=== PATIENT | female | born 1940 | race Caucasian/White ===

== ENCOUNTER 2016-10-23 18:48 | Emergency (ER) | payer MEDICARE, BC ==
[2016-10-23 19:15] VITALS: BP 148/72
[2016-10-23] MEDS ORDERED: Ondansetron 4 MG Tab.DIS PO ONE (19:23)
[2016-10-23] MEDS ORDERED: Ondansetron 4 MG Tab.DIS ONE ×2 (19:24→20:15)
--- NOTE | 2016-10-26 08:22 | ER ---
HISTORY OF PRESENT ILLNESS: A 76-year-old lady here with complaints of not feeling well today. She tells me that she was seen in [place] yesterday, they gave her an infusion of Reclast, which is the first one she has had. She felt fine yesterday. This morning, she woke up with a headache. She felt chilled. She has since developed some nausea and abdominal discomfort. She feels like she has been, maybe feverish at times, but she has not been checking her temperature. The patient has not been coughing. She denies any problems with shortness of breath or wheezing. The patient is not sure what is going on. She denies any problems with diarrhea. She has not been vomiting, but does feel nauseated. OBJECTIVE: GENERAL APPEARANCE: The patient is awake and alert, in no obvious distress. VITAL SIGNS: Reviewed. Temp is 99.9 degrees today. HEENT: Ears, TMs are normal. Nares are patent. Oral mucous membranes are moist. Tonsils not enlarged or injected. Pharynx not inflamed. NECK: Supple. LUNGS: Clear. ABDOMEN: Soft. Mild tenderness with palpation. Bowel sounds are present and active. SKIN: Warm and dry. There is just a trace of lower extremity edema involving the area just above the ankles bilaterally. INITIAL TREATMENT: Zofran 4 mg was given, sublingual. LABORATORY DATA: Include a CBC and CMP. The patient's white count is normal, and she does have some decreased kidney function but this is not new. The Zofran did control the patient's nausea well. In reviewing Reclast, the patient is having a side effect issues. All of her symptoms are possible side affects of Reclast including flu-like illness. DIAGNOSIS: Drug reaction. TREATMENT PLAN: The patient is to go home and rest. She is to take Tylenol every 6 hours as needed for pain and fever. I will give her a few Zofran tablets to take sublingual as needed for nausea, and she is to try to increase her liquid intake. She is to call [place] back on Wednesday to let them know she reacted to the Reclast medication. If her symptoms should get worse, she is to call the emergency room back for further information as needed. The patient has no further questions. CRS/MODL /[id number]
== END 2016-10-23 20:25 | disposition home or self-care (01) ==
LOC: LB.ED 18:48
DX: R11.0 Nausea (principal); T50.995A Adverse effect of other drugs, medicaments and biological substances, initial encounter
CPT/HCPCS: 36415; 80053; 85025; 99283; A9270; 85610; 99282

== ENCOUNTER 2017-03-22 16:43 | Emergency (ER) | payer MEDICARE, BC ==
[2017-03-22] MEDS ORDERED: Sodium Chloride 0.9% 10 ML Syringe FLUSH PRN (16:49)
--- NOTE | 2017-03-24 09:54 | EDM.PDOC ---
ED HPI GENERAL MEDICAL PROBLEM - General Chief Complaint: Cardiovascular Problem Stated Complaint: Elevated Trop Time Seen by Provider: 03/23/17 17:00 Source of Information: Reports: Patient History Limitations: Reports: No Limitations - History of Present Illness INITIAL COMMENTS - FREE TEXT/NARRATIVE: This is a 76yo F seen in clinic for increasing sob and lower leg edema since and found to have elevated troponins today in clinic and was transferred to the ER for transfer to [place]. Location: Reports: Lower Extremity, Left, Lower Extremity, Right Associated Symptoms: Reports: Shortness of Breath - Related Data Allergies Allergy/AdvReac Type Severity Reaction Status Date / Time meperidine HCl [From Demerol] Allergy Hives Verified 03/22/17 17:03 Home Meds: Home Meds Aspirin [Halfprin] 81 mg PO DAILY 01/05/15 [History] Furosemide [Furosemide] 20 mg PO DAILY 01/05/15 [History] Metoprolol Tartrate [Lopressor] 25 mg PO BID 01/05/15 [History] Omeprazole [Omeprazole] 20 mg PO BID 01/05/15 [History] Pioglitazone HCl 30 mg PO DAILY 01/05/15 [History] amLODIPine Besylate [Amlodipine Besylate] 2.5 mg PO DAILY 01/05/15 [History] Ferrous Sulfate 325 mg PO WITHBREAKFAST 04/29/16 [History] L.acidoph,Paracasei, B.lactis [Probiotic] 1 each PO DAILY 04/29/16 [History] Warfarin Sodium [Jantoven] 1.5 tab PO DAILY 04/29/16 [History] sitaGLIPtin Phos/Metformin HCl [Janumet 50-1,000 MG] 1 each PO BIDMEALS [History] Calcium Carbonate [Calcium] 500 mg PO DAILY 10/23/16 [History] Cholecalciferol (Vitamin D3) [Vitamin D] 5,000 unit PO DAILY 10/23/16 [History] Insulin Degludec [Tresiba Flextouch U-100] 3 unit SQ DAILY 10/23/16 [History] PNV95/Ferrous Fumarate/FA [ Tablet] 1 each PO DAILY 10/23/16 [History] Past Medical History HEENT History: Reports: Cataract Other HEENT History: glasses, dentures Cardiovascular History: Reports: Blood Clots/VTE/DVT, High Cholesterol, Hypertension Gastrointestinal History: Reports: Chronic Diarrhea, GERD, Pancreatitis Other OB/BYN History: parity: 3, gravity: 3, vaginal deliveries Musculoskeletal History: Reports: Fracture, Other (See Below) Other Musculoskeletal History: broken left and right wrist and left leg and broken rt hand Endocrine/Metabolic History: Reports: Diabetes, Type II Hematologic History: Reports: Anemia Other Hematologic History: Factor 5 , HX of hepatitis Oncologic (Cancer) History: Reports: Breast Other Dermatologic History: cartilege removed from both knees - Infectious Disease History 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 ED EXAM, GENERAL - Physical Exam Exam: See Below Exam Limited By: No Limitations General Appearance: Alert, WD/WN, No Apparent Distress Eye Exam: Bilateral Eye: EOMI, PERRL Ears: Normal External Exam Nose: Normal Inspection Throat/Mouth: Normal Inspection Head: Atraumatic, Normocephalic Neck: Normal Inspection Respiratory/Chest: No Respiratory Distress, Lungs Clear, Normal Breath Sounds Cardiovascular: Normal Peripheral Pulses, Regular Rate, Rhythm Peripheral Pulses: 2+: Dorsalis Pedis (L), Dorsalis Pedis (R) GI/Abdominal: Normal Bowel Sounds Extremities: Normal Inspection, Pedal Edema Neurological: Alert, Oriented, CN II-XII Intact Psychiatric: Normal Affect, Normal Mood Course - Orders/Labs/Meds Orders: Medication Orders Sodium Chloride (Saline Flush) 10 ml FLUSH ASDIRECTED PRN PRN Reason: Keep Vein Open Labs: Laboratory Tests 03/22/17 03/22/17 Range/Units 16:00 16:48 PT 13.4 H (9.0-11.5) sec INR 1.4 (1.0-3.5) Urine Color Yellow Urine Appearance Clear (CLEAR) Urine pH 6.0 (5.0-8.0) Ur Specific [place] 1.010 (1.003-1.030) Urine Protein Negative (NEGATIVE) mg/dL Urine Glucose (UA) Negative (NEGATIVE) mg/dL Urine Ketones Negative (NEGATIVE) mg/dL Urine Occult Blood Trace-intact H (NEGATIVE) Urine Nitrite Negative (NEGATIVE) Urine Bilirubin Negative (NEGATIVE) Urine Urobilinogen 0.2 (0.2-1.0) E.U./dL Ur Leukocyte Esterase Negative (NEGATIVE) Urine RBC 0-5 H /HPF Urine WBC Not seen /HPF Ur Squamous Epith Cells Rare /HPF Urine Bacteria Rare /HPF Meds: Medications Generic Name Dose Route Start Last Admin Trade Name Freq PRN Reason Stop Dose Admin Sodium Chloride 10 ml 03/22/17 16:49 Saline Flush FLUSH ASDIRECTED PRN Keep Vein Open Departure - Departure Time of Disposition: 18:00 Disposition: DC/Tfer to Acute Hospital 02 Reason for Transfer *Q: Other Condition: Undetermined Clinical Impression: NSTEMI (non-ST elevated myocardial infarction), SOB (shortness of breath), Lower leg edema Clinical Impression: (Ruled Out): Swelling of joint of lower leg Referrals: Ryan Kennedy MD [Primary Care Provider] - Forms: ED Department Discharge - Problem List & Annotations (1) Lower leg edema SNOMED Code(s): 399665567 Code(s): R60.0 - LOCALIZED EDEMA Status: Acute Current Visit: Yes (2) NSTEMI (non-ST elevated myocardial infarction) SNOMED Code(s): 816648351 Code(s): I21.4 - NON-ST ELEVATION (NSTEMI) MYOCARDIAL INFARCTION Status: Acute Current Visit: Yes (3) SOB (shortness of breath) SNOMED Code(s): 530531789 Code(s): R06.02 - SHORTNESS OF BREATH Status: Acute Current Visit: Yes - Problem List Review Problem List Initiated/Reviewed/Updated: Yes - Assessment/Plan Plan: Patient to be transferred to [facility] under Dr. Sommers for further management and workup with Cardiology.
== END 2017-03-22 18:15 ==
LOC: LB.ED 16:43
DX: I21.4 Non-ST elevation (NSTEMI) myocardial infarction (principal); E11.9 Type 2 diabetes mellitus without complications; E78.00 Pure hypercholesterolemia, unspecified; I10 Essential (primary) hypertension; K21.9 Gastro-esophageal reflux disease without esophagitis; Z88.8 Allergy status to other drugs, medicaments and biological substances; Z79.82 Long term (current) use of aspirin; Z79.01 Long term (current) use of anticoagulants; Z79.899 Other long term (current) drug therapy; Z79.84 Long term (current) use of oral hypoglycemic drugs; Z79.4 Long term (current) use of insulin; Z86.79 Personal history of other diseases of the circulatory system; Z86.19 Personal history of other infectious and parasitic diseases; Z90.89 Acquired absence of other organs
CPT/HCPCS: 36415; 81001; 85610; 99283; 99285; A0425; A0429; 80053; 83880; 84443; 84484; 85025; 93005

== ENCOUNTER 2017-03-28 11:38 | Emergency (ER) | payer MEDICARE, BC ==
[2017-03-28] MEDS ORDERED: traMADol 50 MG Tab ONE (11:45)
[2017-03-28] MEDS ORDERED: traMADol 50 MG Tab PO ONE (11:50)
--- NOTE | 2017-03-28 11:56 | EDM.PDOC ---
ED HPI GENERAL MEDICAL PROBLEM - General Chief Complaint: General Stated Complaint: fall Time Seen by Provider: 03/28/17 11:45 Source of Information: Reports: Patient History Limitations: Reports: No Limitations - History of Present Illness INITIAL COMMENTS - FREE TEXT/NARRATIVE: This is a 76yo F here for left knee pain. Patient states she fell yesterday and the left knee pain has gradually gotten worsen. She is able to walk with varying pain. She states she feels very sharp pains with certain movements. Onset: Sudden Duration: Day(s): Location: Reports: Lower Extremity, Left Quality: Reports: Ache, Stabbing Severity: Moderate Improves with: Reports: None Worsens with: Reports: None Associated Symptoms: Reports: No Other Symptoms - Related Data Allergies Allergy/AdvReac Type Severity Reaction Status Date / Time meperidine HCl [From Demerol] Allergy Hives Verified 03/22/17 17:03 Home Meds: Home Meds Aspirin [Halfprin] 81 mg PO DAILY 01/05/15 [History] Furosemide [Furosemide] 20 mg PO DAILY 01/05/15 [History] Metoprolol Tartrate [Lopressor] 25 mg PO BID 01/05/15 [History] Omeprazole [Omeprazole] 20 mg PO BID 01/05/15 [History] Pioglitazone HCl 30 mg PO DAILY 01/05/15 [History] amLODIPine Besylate [Amlodipine Besylate] 2.5 mg PO DAILY 01/05/15 [History] Ferrous Sulfate 325 mg PO WITHBREAKFAST 04/29/16 [History] L.acidoph,Paracasei, B.lactis [Probiotic] 1 each PO DAILY 04/29/16 [History] Warfarin Sodium [Jantoven] 1.5 tab PO DAILY 04/29/16 [History] sitaGLIPtin Phos/Metformin HCl [Janumet 50-1,000 MG] 1 each PO BIDMEALS [History] Calcium Carbonate [Calcium] 500 mg PO DAILY 10/23/16 [History] Cholecalciferol (Vitamin D3) [Vitamin D] 5,000 unit PO DAILY 10/23/16 [History] Insulin Degludec [Tresiba Flextouch U-100] 3 unit SQ DAILY 10/23/16 [History] PNV95/Ferrous Fumarate/FA [ Tablet] 1 each PO DAILY 05/05/17 [History] Past Medical History HEENT History: Reports: Cataract Other HEENT History: glasses, dentures Cardiovascular History: Reports: Blood Clots/VTE/DVT, High Cholesterol, Hypertension Gastrointestinal History: Reports: Chronic Diarrhea, GERD, Pancreatitis Other OB/BYN History: parity: 3, gravity: 3, vaginal deliveries Musculoskeletal History: Reports: Fracture, Other (See Below) Other Musculoskeletal History: broken left and right wrist and left leg and broken rt hand Endocrine/Metabolic History: Reports: Diabetes, Type II Hematologic History: Reports: Anemia Other Hematologic History: Factor 5 , HX of hepatitis Oncologic (Cancer) History: Reports: Breast Other Dermatologic History: cartilege removed from both knees - Infectious Disease History 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 ED EXAM, GENERAL - Physical Exam Exam: See Below Exam Limited By: No Limitations General Appearance: Mild Distress Ears: Normal External Exam Nose: Normal Inspection Head: Atraumatic, Normocephalic Neck: Normal Inspection Respiratory/Chest: No Respiratory Distress Cardiovascular: Normal Peripheral Pulses Extremities: Joint Swelling, Leg Pain, Other (left knee hematoma) Neurological: Alert, Oriented Psychiatric: Normal Affect, Normal Mood Skin Exam: Warm, Dry, Intact, Ecchymosis Course - Orders/Labs/Meds Orders: Active Orders 24 hr Category Date Time Status Knee 1V or 2V Lt [CR] Stat Exams 03/28/17 11:52 Taken Meds: Medications Discontinued Medications Generic Name Dose Route Start Last Admin Trade Name Freq PRN Reason Stop Dose Admin Tramadol HCl 50 mg 03/28/17 11:50 03/28/17 11:56 Ultram PO 03/28/17 11:51 50 mg ONETIME ONE Administration Departure - Departure Time of Disposition: 12:25 Disposition: Home, Self-Care 01 Condition: Good Clinical Impression: Contusion of knee, left Qualifiers: Encounter type: initial encounter Qualified Code(s): S80.02XA - Contusion of left knee, initial encounter - Discharge Information Instructions: Knee Pain Referrals: PCP,None [Primary Care Provider] - Forms: ED Department Discharge Additional Instructions: Take 1 tablet (50 mg) of tramadol every 6 hours as needed for pain. - Problem List & Annotations (1) Contusion of knee, left SNOMED Code(s): 42256006 Code(s): S80.02XA - CONTUSION OF LEFT KNEE, INITIAL ENCOUNTER Status: Acute Priority: High Current Visit: Yes Qualifiers: Encounter type: initial encounter Qualified Code(s): S80.02XA - Contusion of left knee, initial encounter - Problem List Review Problem List Initiated/Reviewed/Updated: Yes - My Orders Last 24 Hours: My Active Orders 03/28/17 11:52 Knee 1V or 2V Lt [CR] Stat - Assessment/Plan Last 24 Hours: My Active Orders 03/28/17 11:52 Knee 1V or 2V Lt [CR] Stat Plan: Counseled on supportive care and close monitoring for further symptoms. Discussed pain management and f/u as needed in clinic or ER. Tramadol for pain control. Discussed side effects.
[2017-03-28 15:44] VITALS: BP 158/74
--- NOTE | 2017-03-29 08:39 | CR ---
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 There is chondrocalcinosis medially and laterally. There is a moderate-sized joint effusion. There is soft tissue swelling anterior to the patella as well as anterior to the patellar tendon. The patellar tendon appears swollen and partially discontinuous. The possibility of a patellar tendon tear should be considered. Clinical correlation is recommended. A MRI scan is recommended if clinically indicated. No acute fracture or dislocation. There are vascular calcifications in the soft tissues. [id number] [facility]
== END 2017-03-28 12:40 | disposition home or self-care (01) ==
LOC: LB.ED 11:38
DX: S80.02XA Contusion of left knee, initial encounter (principal); E78.00 Pure hypercholesterolemia, unspecified; I10 Essential (primary) hypertension; E11.9 Type 2 diabetes mellitus without complications; Z96.659 Presence of unspecified artificial knee joint; Z79.899 Other long term (current) drug therapy; Z88.5 Allergy status to narcotic agent; Z79.01 Long term (current) use of anticoagulants; Z79.4 Long term (current) use of insulin; W19.XXXA Unspecified fall, initial encounter
CPT/HCPCS: 73560; 99283; A9270

== ENCOUNTER 2017-05-08 06:47 | Emergency (ER) | payer MEDICARE, BC ==
[2017-05-08 07:02] VITALS: BP 153/58
--- NOTE | 2017-05-08 08:28 | EDM.PDOC ---
ED HPI GENERAL MEDICAL PROBLEM - General Chief Complaint: Genitourinary Problem Stated Complaint: possible urinary tract infection Time Seen by Provider: 05/08/17 08:00 Source of Information: Reports: Patient History Limitations: Reports: No Limitations - History of Present Illness INITIAL COMMENTS - FREE TEXT/NARRATIVE: According to patient she has been having burning with urination and lower abdominal discomfort for past 3 days now. The frequency has been getting worse and has been waking upat night to urinate. No back pain. No fever or chills. No nausea or vomiting. Pt waited to see if the symptoms would resolve. No vaginal bleeding or discharge. Duration: Day(s): (3) Severity: Mild Improves with: Reports: None Worsens with: Reports: None Associated Symptoms: Denies: Confusion, Chest Pain, Cough, Diaphoresis, Fever/ Chills, Headaches, Loss of Appetite, Nausea/Vomiting, Rash, Seizure, Shortness of Breath, Syncope, Weakness - Related Data Allergies Allergy/AdvReac Type Severity Reaction Status Date / Time meperidine HCl [From Demerol] Allergy Hives Verified 03/22/17 17:03 Home Meds: Home Meds Aspirin [Halfprin] 81 mg PO DAILY 01/05/15 [History] Furosemide [Furosemide] 20 mg PO DAILY 01/05/15 [History] Metoprolol Tartrate [Lopressor] 25 mg PO BID 01/05/15 [History] Omeprazole [Omeprazole] 20 mg PO BID 01/05/15 [History] amLODIPine Besylate [Amlodipine Besylate] 2.5 mg PO DAILY 01/05/15 [History] Ferrous Sulfate 325 mg PO WITHBREAKFAST 04/29/16 [History] L.acidoph,Paracasei, B.lactis [Probiotic] 1 each PO DAILY 04/29/16 [History] Warfarin Sodium [Jantoven] 1.5 tab PO DAILY 04/29/16 [History] Calcium Carbonate [Calcium] 500 mg PO DAILY 10/23/16 [History] Cholecalciferol (Vitamin D3) [Vitamin D] 5,000 unit PO DAILY 10/23/16 [History] Insulin Degludec [Tresiba Flextouch U-100] 8 unit SQ DAILY 10/23/16 [History] PNV95/Ferrous Fumarate/FA [ Tablet] 1 each PO DAILY 10/23/16 [History] Insulin Aspart [NovoLOG] 3 units SQ TID 05/08/17 [History] Warfarin [Coumadin] 1 mg PO DAILY 05/08/17 [History] Past Medical History HEENT History: Reports: Cataract Other HEENT History: glasses, dentures Cardiovascular History: Reports: Blood Clots/VTE/DVT, High Cholesterol, Hypertension Gastrointestinal History: Reports: Chronic Diarrhea, GERD, Pancreatitis Other OB/BYN History: parity: 3, gravity: 3, vaginal deliveries Musculoskeletal History: Reports: Fracture, Other (See Below) Other Musculoskeletal History: broken left and right wrist and left leg and broken rt hand Endocrine/Metabolic History: Reports: Diabetes, Type II Hematologic History: Reports: Anemia Other Hematologic History: Factor 5 , HX of hepatitis Oncologic (Cancer) History: Reports: Breast Other Dermatologic History: cartilege removed from both knees - Infectious Disease History 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,B,C - Past Surgical History HEENT Surgical History: Reports: Cataract Surgery, LASIK, Tonsillectomy Female Surgical History: Reports: Breast Biopsy Musculoskeletal Surgical History: Reports: Arthroscopic Knee, Knee Replacement Social & Family History - Family History Family Medical History: Noncontributory - Tobacco Use Smoking Status *Q: Never Smoker Second Hand Smoke Exposure: No - Caffeine Use Caffeine Use: Reports: Coffee - Recreational Drug Use Recreational Drug Use: No ED ROS GENERAL - Review of Systems Review Of Systems: See Below Constitutional: Denies: Fever, Chills HEENT: Denies: Rhinitis, Sinus Problem, Throat Pain Respiratory: Denies: Shortness of Breath, Wheezing, Cough, Sputum Cardiovascular: Denies: Chest Pain, Lightheadedness GI/Abdominal: Denies: Abdominal Pain, Nausea, Vomiting : Reports: Dysuria, Frequency, Urgency. Denies: Flank Pain, Hematuria, Incontinence, Urinary Retention Musculoskeletal: Denies: Shoulder Pain, Foot Pain, Joint Pain, Joint Swelling Skin: Denies: Pruritis, Rash ED EXAM, GENERAL - Physical Exam Exam: See Below Exam Limited By: No Limitations General Appearance: Alert, WD/WN, No Apparent Distress Eye Exam: Bilateral Eye: PERRL Ears: Normal External Exam, Normal Canal, Hearing Grossly Normal, Normal TMs Ear Exam: Bilateral Ear: Auricle Normal, Canal Normal, TM normal Nose: Normal Inspection, Normal Mucosa, No Blood Throat/Mouth: Normal Inspection, Normal Lips, Normal Teeth, Normal Gums, Normal Oropharynx, Normal Voice, No Airway Compromise Head: Atraumatic, Normocephalic Neck: Normal Inspection, Supple, Non-Tender, Full Range of Motion Respiratory/Chest: No Respiratory Distress, Lungs Clear, Normal Breath Sounds, No Accessory Muscle Use, Chest Non-Tender Cardiovascular: Normal Peripheral Pulses, Regular Rate, Rhythm, No Edema, No Gallop, No JVD, No Murmur, No Rub GI/Abdominal: Normal Bowel Sounds, Soft, No Organomegaly, No Distention, No Abnormal Bruit, No Mass, Tender (suprapubic tenderness). No: Guarding, Rigid, Rebound Extremities: Normal Inspection, Normal Range of Motion, Non-Tender, Normal Capillary Refill, No Pedal Edema Neurological: Alert, Oriented Skin Exam: Warm, Intact Course - Vital Signs Text/Narrative:: Pt's UA shows large leucs and 75-100 WBCs. Pt reassured that she has acute UTI. She does not have any symptoms of pyelonephritis. Urine culture sent. Pt started on cipro 500mg BID for 1 wk. Plenty of fluids and 1-2 glass of cranberry juice. Will followup with culture results. Return if symptoms worsen. Last Recorded V/S: Last Vital Signs Temp 97 F 05/08/17 07:43 Pulse 74 05/08/17 07:43 Resp 16 05/08/17 07:43 BP 153/58 H 05/08/17 07:43 Pulse Ox 100 05/08/17 07:43 - Orders/Labs/Meds Orders: Active Orders 24 hr Category Date Time Status CULTURE URINE [RM] Stat Lab 05/08/17 08:22 Ordered Labs: Laboratory Tests 05/08/17 Range/Units 07:44 Urine Color Yellow Urine Appearance Cloudy (CLEAR) Urine pH 7.0 (5.0-8.0) Ur Specific [place] 1.015 (1.003-1.030) Urine Protein 30 H (NEGATIVE) mg/dL Urine Glucose (UA) Negative (NEGATIVE) mg/dL Urine Ketones Negative (NEGATIVE) mg/dL Urine Occult Blood Large H (NEGATIVE) Urine Nitrite Negative (NEGATIVE) Urine Bilirubin Negative (NEGATIVE) Urine Urobilinogen 0.2 (0.2-1.0) E.U./dL Ur Leukocyte Esterase Large H (NEGATIVE) Urine RBC 20-30 H /HPF Urine WBC 75-100 H /HPF Urine WBC Clumps Few /HPF Ur Squamous Epith Cells Few /HPF Urine Bacteria Few /HPF Departure - Departure Time of Disposition: 08:45 Disposition: Home, Self-Care 01 Condition: Good Clinical Impression: UTI, Urinary tract infectious disease - Discharge Information Instructions: Urinary Tract Infection, Adult, Ciprofloxacin tablets Referrals: PCP,None [Primary Care Provider] - Forms: ED Department Discharge Care Plan Goals: Take cipro 1 tablet two times day for total of 7 days. Have rest of prescription filled on Wednesday. Drink plenty of fluids (water or juice, not coffee) - Problem List & Annotations (1) UTI, Urinary tract infectious disease SNOMED Code(s): 96833745 Code(s): N39.0 - URINARY TRACT INFECTION, SITE NOT SPECIFIED Status: Acute Current Visit: Yes - Problem List Review Problem List Initiated/Reviewed/Updated: Yes - My Orders Last 24 Hours: My Active Orders 05/08/17 08:22 CULTURE URINE [RM] Stat - Assessment/Plan Last 24 Hours: My Active Orders 05/08/17 08:22 CULTURE URINE [RM] Stat Assessment:: UTI Plan: Pt's UA shows large leucs and 75-100 WBCs. Pt reassured that she has acute UTI. She does not have any symptoms of pyelonephritis. Urine culture sent. Pt started on cipro 500mg BID for 1 wk. Plenty of fluids and 1-2 glass of cranberry juice. Will followup with culture results. Return if symptoms worsen.
[2017-05-08] MEDS ORDERED: Ciprofloxacin 500 MG Tab ONE (08:30)
== END 2017-05-08 10:13 | disposition home or self-care (01) ==
LOC: LB.ED 06:47
DX: N39.0 Urinary tract infection, site not specified (principal); E11.9 Type 2 diabetes mellitus without complications; E78.00 Pure hypercholesterolemia, unspecified; I10 Essential (primary) hypertension; Z79.82 Long term (current) use of aspirin; Z79.899 Other long term (current) drug therapy; Z79.01 Long term (current) use of anticoagulants; Z79.4 Long term (current) use of insulin
CPT/HCPCS: 81001; 87086; 87088; 87186; 99283; A9270

== ENCOUNTER 2017-09-11 10:42 | Emergency (ER) | payer MEDICARE, BC ==
--- NOTE | 2017-09-11 11:11 | EDM.PDOC ---
ED HPI GENERAL MEDICAL PROBLEM - General Chief Complaint: Chest Pain Stated Complaint: CHEST PAIN Time Seen by Provider: 09/11/17 10:45 Source of Information: Reports: Patient History Limitations: Reports: No Limitations - History of Present Illness INITIAL COMMENTS - FREE TEXT/NARRATIVE: According to patient she claims claims that around 8 AM she felt some chest pressure and sick, which last for few minutes and resolved.No shortness of breath or wheezing, she had not obvious chest pain or radiation of pain. No syncope, dizziness, no nausea or vomiting. She has been doing most of her daily activity since then and does not have anymore discomfort. As she has cardiac history she is here to be seen. No weakness, diaphoresis.No other complaints. Presently in the emergency room pt is asymptomatic. Onset: Today Onset Date: 09/11/17 Onset Time: 08:00 Location: Reports: Chest Quality: Reports: Ache Severity: Mild Improves with: Reports: None Worsens with: Reports: None Associated Symptoms: Denies: Confusion, Chest Pain, Cough, Diaphoresis, Fever/ Chills, Headaches, Nausea/Vomiting, Rash, Seizure, Shortness of Breath, Syncope , Weakness - Related Data Allergies Allergy/AdvReac Type Severity Reaction Status Date / Time meperidine HCl [From Demerol] Allergy Hives Verified 03/22/17 17:03 Home Meds: Home Meds Aspirin [Halfprin] 81 mg PO DAILY 01/05/15 [History] Furosemide [Furosemide] 20 mg PO DAILY 01/05/15 [History] Metoprolol Tartrate [Lopressor] 25 mg PO BID 01/05/15 [History] Ferrous Sulfate 325 mg PO WITHBREAKFAST 04/29/16 [History] Warfarin Sodium [Jantoven] 1.5 tab PO DAILY 04/29/16 [History] Calcium Carbonate [Calcium] 500 mg PO DAILY 10/23/16 [History] Cholecalciferol (Vitamin D3) [Vitamin D] 5,000 unit PO DAILY 10/23/16 [History] PNV95/Ferrous Fumarate/FA [ Tablet] 1 each PO DAILY 10/23/16 [History] Insulin Aspart [NovoLOG] 3 units SQ TID 05/08/17 [History] Warfarin [Coumadin] 1 mg PO DAILY 05/08/17 [History] Insulin Glarg,Human.Rec.Analog [Lantus] 8 unit SUBCUT DAILY 09/11/17 [History] amLODIPine Besylate [Norvasc] 2.5 mg PO DAILY 09/11/17 [History] Past Medical History HEENT History: Reports: Cataract Other HEENT History: glasses, dentures Cardiovascular History: Reports: Blood Clots/VTE/DVT, High Cholesterol, Hypertension Gastrointestinal History: Reports: Chronic Diarrhea, GERD, Pancreatitis Other OB/BYN History: parity: 3, gravity: 3, vaginal deliveries Musculoskeletal History: Reports: Fracture, Other (See Below) Other Musculoskeletal History: broken left and right wrist and left leg and broken rt hand Endocrine/Metabolic History: Reports: Diabetes, Type II Hematologic History: Reports: Anemia Other Hematologic History: Factor 5 , HX of hepatitis Oncologic (Cancer) History: Reports: Breast Other Dermatologic History: cartilege removed from both knees - Infectious Disease History 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,B,C - Past Surgical History HEENT Surgical History: Reports: Cataract Surgery, LASIK, Tonsillectomy Female Surgical History: Reports: Breast Biopsy Musculoskeletal Surgical History: Reports: Arthroscopic Knee, Knee Replacement Social & Family History - Family History Family Medical History: Noncontributory - Tobacco Use Smoking Status *Q: Never Smoker Second Hand Smoke Exposure: No - Caffeine Use Caffeine Use: Reports: Coffee - Recreational Drug Use Recreational Drug Use: No ED ROS GENERAL - Review of Systems Review Of Systems: See Below Constitutional: Denies: Fever, Chills HEENT: Denies: Rhinitis, Throat Pain, Throat Swelling Respiratory: Denies: Shortness of Breath, Wheezing, Pleuritic Chest Pain, Cough , Sputum Cardiovascular: Reports: Chest Pain. Denies: Lightheadedness GI/Abdominal: Denies: Abdominal Pain, Constipation, Diarrhea, Nausea, Vomiting : Denies: Dysuria, Flank Pain Musculoskeletal: Denies: Joint Pain, Joint Swelling Skin: Denies: Bruising, Pruritis, Rash Neurological: Denies: Dizziness, Headache, Tremors ED EXAM, GENERAL - Physical Exam Exam: See Below Exam Limited By: No Limitations General Appearance: Alert, WD/WN, No Apparent Distress Eye Exam: Bilateral Eye: EOMI, PERRL Ears: Normal External Exam, Normal Canal, Hearing Grossly Normal, Normal TMs Ear Exam: Bilateral Ear: Auricle Normal, Canal Normal, TM normal Nose: Normal Inspection, Normal Mucosa, No Blood Throat/Mouth: Normal Inspection, Normal Lips, Normal Teeth, Normal Gums, Normal Oropharynx, Normal Voice, No Airway Compromise Head: Atraumatic, Normocephalic Neck: Normal Inspection, Supple, Non-Tender, Full Range of Motion Respiratory/Chest: No Respiratory Distress, Lungs Clear, Normal Breath Sounds, No Accessory Muscle Use, Chest Non-Tender Cardiovascular: Normal Peripheral Pulses, Regular Rate, Rhythm, No Edema, No Gallop, No JVD, No Murmur, No Rub Peripheral Pulses: 2+: Carotid (L), Carotid (R), Radial (L), Radial (R) GI/Abdominal: Normal Bowel Sounds, Soft, Non-Tender, No Organomegaly, No Distention, No Abnormal Bruit, No Mass Back Exam: Normal Inspection, Full Range of Motion, NT Extremities: Normal Inspection, Normal Range of Motion, Non-Tender, Normal Capillary Refill, No Pedal Edema Neurological: Alert, Oriented, CN II-XII Intact, Normal Cognition Psychiatric: Normal Affect, Normal Mood Skin Exam: Warm, Intact, Normal Color, No Rash EKG INTERPRETATION EKG Date: 09/11/17 Rhythm: NSR [place]: Normal P-Wave: Present QRS: Normal ST-T: Normal QT: Normal Course - Vital Signs Text/Narrative:: Pt's EKG is in NSR. No acute changes seen. Also Pt has short episode of chest pressure in the morning, which has resolved and has not reoccurred. Also she has been doing her daily activities since then. Her CBC, CMP are normal. Troponin in negative. Pt does have cardiac history. Also she has been under lot of family health issues. I do not see any acute cardiac symptoms or signs. I have reassured patient. Advised to take her meds as prescribed. no further workup necessary. Advised to followup with her primary care next week if symptoms persists. Return to emergency room if symptoms worsen. Last Recorded V/S: Last Vital Signs Temp 98.5 F 09/11/17 11:01 Pulse 67 09/11/17 11:10 Resp 14 09/11/17 11:01 BP 153/66 H 09/11/17 11:10 Pulse Ox 98 09/11/17 11:10 - Orders/Labs/Meds Orders: Active Orders 24 hr Category Date Time Status EKG Documentation Completion [RC] ASDIRECTED Care 09/11/17 11:00 Active Chest 1V Frontal [CR] Stat Exams 09/11/17 11:01 Taken Labs: Laboratory Tests 09/11/17 09/11/17 Range/Units 10:57 11:00 WBC 5.2 D (4.0-11.0) K/uL Hct 40.0 (37.0-47.0) % Sodium 138 (136-145) mmol/L Potassium 5.1 (3.5-5.1) mmol/L Chloride 102 (98-107) mmol/L Carbon Dioxide 25.9 (21.0-32.0) mmol/L Anion Gap 15.2 H (5.0-15.0) mmol/L BUN 39 H (8-26) mg/dL Creatinine 2.08 H (0.55-1.02) mg/dL Est Cr Clr Drug Dosing 18.74 mL/min Estimated GFR (MDRD) 23 L (>60) MLS/MIN BUN/Creatinine Ratio 18.8 (6-25) Glucose 201 H D (74-100) mg/dL Calcium 10.3 H (8.5-10.1) mg/dL Troponin I < 0.017 (0.000-0.060) ng/mL Departure - Departure Time of Disposition: 12:00 Disposition: Home, Self-Care 01 Condition: Fair Clinical Impression: Chest discomfort - Discharge Information Forms: ED Department Discharge Additional Instructions: Pt's EKG is in NSR. No acute changes seen. Also Pt has short episode of chest pressure in the morning, which has resolved and has not reoccurred. Also she has been doing her daily activities since then. Her CBC, CMP are normal. Troponin in negative. Pt does have cardiac history. Also she has been under lot of family health issues. I do not see any acute cardiac symptoms or signs. I have reassured patient. Advised to take her meds as prescribed. no further workup necessary. Advised to followup with her primary care next week if symptoms persists. Return to emergency room if symptoms worsen. - Problem List & Annotations (1) Chest discomfort SNOMED Code(s): 380152943 Code(s): R07.89 - OTHER CHEST PAIN Status: Acute Current Visit: Yes - Problem List Review Problem List Initiated/Reviewed/Updated: Yes - My Orders Last 24 Hours: My Active Orders 09/11/17 11:00 EKG Documentation Completion [RC] ASDIRECTED 09/11/17 11:01 Chest 1V Frontal [CR] Stat - Assessment/Plan Last 24 Hours: My Active Orders 09/11/17 11:00 EKG Documentation Completion [RC] ASDIRECTED 09/11/17 11:01 Chest 1V Frontal [CR] Stat Assessment:: Chest discomfort Plan: Pt's EKG is in NSR. No acute changes seen. Also Pt has short episode of chest pressure in the morning, which has resolved and has not reoccurred. Also she has been doing her daily activities since then. Her CBC, CMP are normal. Troponin in negative. Pt does have cardiac history. Also she has been under lot of family health issues. I do not see any acute cardiac symptoms or signs. I have reassured patient. Advised to take her meds as prescribed. no further workup necessary. Advised to followup with her primary care next week if symptoms persists. Return to emergency room if symptoms worsen.
[2017-09-11 11:59] VITALS: BP 140/60
--- NOTE | 2017-09-12 12:30 | CR ---
DATE OF SERVICE: 09/11/17 CLINICAL DATA: chest pain AP CHEST: Comparison is made to a prior exam dated 07/09/14. The heart is mildly enlarged. It has increased in size from the prior study. There is calcification of the aortic arch. The lungs are clear. No pneumothorax. No pleural effusions. [id number] [facility]
== END 2017-09-11 12:15 | disposition home or self-care (01) ==
LOC: LB.ED 10:42
DX: R07.89 Other chest pain (principal); E11.9 Type 2 diabetes mellitus without complications; I10 Essential (primary) hypertension; E78.00 Pure hypercholesterolemia, unspecified; Z88.5 Allergy status to narcotic agent; Z79.4 Long term (current) use of insulin; Z79.899 Other long term (current) drug therapy; Z79.82 Long term (current) use of aspirin
CPT/HCPCS: 36415; 71045; 80048; 84484; 85014; 85048; 93005; 99285-25

== ENCOUNTER 2017-12-08 01:48 | Emergency (ER) | payer MEDICARE, BC ==
[2017-12-08] MEDS: Sodium Chloride 0.9% 500 ML IV ONE (02:57)
[2017-12-08 03:12] VITALS: BP 114/57
--- NOTE | 2017-12-08 04:54 | ER ---
DATE OF SERVICE: 12/08/2017 HPI: A 77-year-old female who comes in by ambulance with complaints of feeling weak and slightly lightheaded. She states that she felt good when she went to bed. She woke up during the night and did not feel well. She has been sweaty at times and at other times almost chilled. She denies any chest pain, coughing, shortness of breath, and denies any abdominal pain. The patient has been under a lot of stress recently. Her has had some medical issues, and they are in the process of just moving into town to an apartment. They are still in the process of doing this, but they are staying at this apartment. She also has 2 granddaughters who have recently had surgery. The patient denies any falls or injuries. PAST MEDICAL HISTORY: Includes a non-STEMI; history of diabetes, insulin dependent; history of shortness of breath; history of UTI. She also has history of factor V Leiden insufficiency. OBJECTIVE: GENERAL APPEARANCE: The patient is awake, she is slightly pale, in no obvious distress. VITAL SIGNS: Reviewed. Blood pressure 114/57, she is afebrile, pulse is 93, O2 sats are 96%. HEENT: Ears, TMs are normal. Nares are patent. Oral mucous membranes are slightly dry. Tonsils not enlarged or injected. Pharynx not inflamed. NECK: Supple. LUNGS: Clear. CARDIAC: Heart sounds distinct without murmurs. ABDOMEN: Soft , nontender. Bowel sounds are present. SKIN: Warm and dry. LABS: Include a CBC which is normal. PT/INR are normal as well with an INR of 2.0. Comprehensive metabolic panel shows an elevated BUN of 46, creatinine 1.99, blood sugar 69. Troponin is negative. EKG is also showing a normal sinus rhythm. DIAGNOSIS: 1. Hypoglycemia, mild in nature. 2. Dehydration, mild in nature. 3. Stress/anxiety. TREATMENT PLAN: The patient will be given some juice here in the ER. She was given a bolus of 500 mL of normal saline. She is feeling significantly better. At this point , the patient will be discharged home. I do want her to follow up with her primary care provider by the end of the week for a recheck. I advised patient to try to relax and rest at home, and she has no further questions. She feels comfortable being discharged. CRS/MODL /[id number] [place]
== END 2017-12-08 04:10 | disposition home or self-care (01) ==
LOC: LB.ED 01:48
DX: E11.649 Type 2 diabetes mellitus with hypoglycemia without coma (principal); E86.0 Dehydration; F41.9 Anxiety disorder, unspecified; F43.9 Reaction to severe stress, unspecified; I25.2 Old myocardial infarction; E11.9 Type 2 diabetes mellitus without complications
CPT/HCPCS: 36415; 80053; 84484; 85025; 85610; 93005; 96360; 99285-25; A0425; A0429; J7040

== ENCOUNTER → 2019-05-09 | Outpatient (CLI) | payer MEDICARE, BC | LOC: LB.COAG 14:40 | PROVIDERS: ATTEND Family Medicine | DX: Z51.81 Encounter for therapeutic drug level monitoring (principal); Z86.718 Personal history of other venous thrombosis and embolism; Z79.01 Long term (current) use of anticoagulants | CPT/HCPCS: 85610 ==

== ENCOUNTER → 2019-05-11 | Outpatient (CLI) | payer MEDICARE, BC ==
[2019-05-11 11:32] LABS: HEMOGLOBIN A1C 6.7 % (< 5.7)
== END ==
LOC: LB.CLINIC 10:35
PROVIDERS: ATTEND Nurse Practitioner Family
DX: E11.22 Type 2 diabetes mellitus with diabetic chronic kidney disease (principal); N18.9 Chronic kidney disease, unspecified; R30.0 Dysuria
CPT/HCPCS: 36415; 80048; 81001; 83036

== ENCOUNTER 2019-07-01 09:01 | Emergency (ER) | payer MEDICARE, BC ==
[2019-07-01 09:36] VITALS: BP 141/82; PULSE 86
--- NOTE | 2019-07-01 10:58 | ER ---
REASON FOR EMERGENCY ROOM VISIT: Buttock pain. HISTORY: This 78-year-old woman has had pain in her buttock area since she suffered a fall on 06/15. She was told that she had a bruise to the tailbone at that time, and she was seen, and she also had suffered some head trauma at that time, at which time, she underwent a CT scan of her head, which was negative. She saw her physician in [place] on Wednesday about her pain in her tailbone area, and he told her that it was from bruising. Over the past day or so, the pain has increased, and she is concerned she might have a "blood clot." The reason for this is that she has had 2 episodes of DVT at least dating back to the , and she is known to have a factor V Leiden deficiency. She is on Coumadin on a chronic basis, but she has not had any episodes of DVT for the past 20 years or so. She denies any leg pain, swelling, shortness of breath, or chest pain. PAST MEDICAL HISTORY: 1. Kso-CV-juuuxhcke myocardial infarction. 2. Insulin-dependent diabetes mellitus. 3. Factor V Leiden deficiency. 4. History of UTI. 5. History of anxiety. 6. History of knee replacement. MEDICATIONS: Reviewed. Please see her EMR. They include warfarin, vitamins, metoprolol, insulin, furosemide, ferrous sulfate, and 1 baby aspirin per day. ALLERGIES: TO MEPERIDINE. REVIEW OF SYSTEMS: Pertinent positives and negatives as listed in the HPI. PHYSICAL EXAMINATION: VITAL SIGNS: She is afebrile. Blood pressure 141/82, heart rate 86, respirations 20, O2 saturations 98%. HEENT: Atraumatic. NECK: Supple. No JVD. CHEST: Clear to auscultation with good breath sounds bilaterally and no wheezes, rhonchi, or rales. CARDIAC: Regular rate without murmur. ABDOMEN: Soft and nontender. Obese. MUSCULOSKELETAL: Examination of her spine, she has no tenderness about the spine. Her buttock area discloses that she has tenderness directly over her coccyx, which is quite exquisite. There is no crepitus. There is no bruising or induration. EXTREMITIES: Normal pulses, no edema. LABORATORY DATA: Her D-dimer is borderline elevated, and her CBC is normal. Her PT is 18.8 and her INR is 2.0 (these are stable values for her). IMPRESSION: Bruising about coccyx. D-dimer is borderline elevated, and I have a very low index of suspicion for deep venous thrombosis as clinically there is no indication that she has anything going on. IMPRESSION: Coccygeal pain (coccydynia). PLAN: I encouraged her to take 1 regular aspirin q.i.d. and apply a heat pad to the coccyx area as needed. I urged her to follow up with Dr. Kennedy on Wednesday or Wednesday. She agrees with this plan. All questions were answered and she understands. ALTAGRACIA/LUIS /[id number]
== END 2019-07-01 10:20 | disposition home or self-care (01) ==
LOC: LB.ED 09:01
DX: M53.3 Sacrococcygeal disorders, not elsewhere classified (principal); F41.9 Anxiety disorder, unspecified; E11.9 Type 2 diabetes mellitus without complications; Z79.4 Long term (current) use of insulin; Z79.82 Long term (current) use of aspirin; Z79.899 Other long term (current) drug therapy
CPT/HCPCS: 36415; 85025; 85379; 85610; 99282; 99283

== ENCOUNTER 2021-01-23 12:18 | Emergency (ER) | payer MEDICARE, BC ==
--- NOTE | 2021-01-23 12:46 | EDM.PDOC ---
ED HPI GENERAL MEDICAL PROBLEM - General Chief Complaint: General Stated Complaint: WEAKNESS Time Seen by Provider: 01/23/21 12:30 Source of Information: Reports: Patient History Limitations: Reports: No Limitations - History of Present Illness INITIAL COMMENTS - FREE TEXT/NARRATIVE: Patient presents to the emergency department accompanied by granddaughter. Patient provides history of generalized fatigue and weakness over the past 3 weeks. During this time she has had intermittently rested while taking care of her full-time who has been decompensating with a diagnosis of Parkinson's. Patient states medical history significant for breast cancer without mastectomy was treated with radiation and chemotherapy approximately 10 years ago. Also states history of [place] proximately 5 to 6 years ago. Patient denies chest pain, cough, no shortness of breath, fever, chills, nausea, vomiting, diarrhea, unilateral weakness. - Related Data Allergies Allergy/AdvReac Type Severity Reaction Status Date / Time meperidine HCl [From Demerol] Allergy Hives Verified 01/23/21 12:27 Home Meds: Home Meds Aspirin [Halfprin] 81 mg PO DAILY 01/05/15 [History] Furosemide 20 mg PO DAILY 01/05/15 [History] Metoprolol Tartrate [Lopressor] 25 mg PO BID 01/05/15 [History] Ferrous Sulfate 325 mg PO WITHBREAKFAST 04/29/16 [History] Cholecalciferol (Vitamin D3) [Vitamin D] 5,000 unit PO DAILY 10/23/16 [History] Pnv No.95/Ferrous Fum/Folic AC [ Tablet] 1 each PO DAILY 10/23/16 [History] Insulin Aspart [NovoLOG] 3 units SQ TID 05/08/17 [History] Warfarin Sodium [Jantoven] 5 mg PO DAILY 07/01/19 [History] Past Medical History HEENT History: Reports: Cataract Other HEENT History: glasses, dentures Cardiovascular History: Reports: Blood Clots/VTE/DVT, High Cholesterol, Hypertension, [place] Gastrointestinal History: Reports: Chronic Diarrhea, GERD, Pancreatitis Genitourinary History: Reports: Other (See Below) Other Genitourinary History: gall bladder removal DOCK BUILDER History: Reports: Other DOCK BUILDER History: parity: 3, gravity: 3, vaginal deliveries Musculoskeletal History: Reports: Fracture, Other (See Below) Other Musculoskeletal History: broken left and right wrist and left leg and broken rt hand Psychiatric History: Reports: Anxiety Endocrine/Metabolic History: Reports: Diabetes, Type II, IDDM Hematologic History: Reports: Anemia Other Hematologic History: Factor V Leiden Oncologic (Cancer) History: Reports: Breast Other Dermatologic History: cartilege removed from both knees - Infectious Disease History Infectious Disease History: Reports: Hepatitis A Other Infectious Disease History: Hepatitis-unsure of type - Past Surgical History HEENT Surgical History: Reports: Cataract Surgery, LASIK, Tonsillectomy Female Surgical History: Reports: Breast Biopsy Musculoskeletal Surgical History: Reports: Arthroscopic Knee, Knee Replacement Social & Family History - Family History Family Medical History: No Pertinent Family History - Caffeine Use Caffeine Use: Reports: Coffee ED ROS GENERAL - Review of Systems Review Of Systems: Comprehensive ROS is negative, except as noted in HPI. ED EXAM, GENERAL - Physical Exam Exam: See Below Exam Limited By: No Limitations General Appearance: Alert, WD/WN, No Apparent Distress Eye Exam: Bilateral Eye: EOMI, PERRL Throat/Mouth: Normal Inspection, Normal Lips, Normal Teeth, Normal Gums, Normal Oropharynx Head: Atraumatic, Normocephalic Neck: Normal Inspection, Supple, Non-Tender, Full Range of Motion Respiratory/Chest: No Respiratory Distress, Lungs Clear, Normal Breath Sounds, No Accessory Muscle Use Cardiovascular: Normal Peripheral Pulses, Regular Rate, Rhythm, No Murmur, Other (+1 pitting edema to lower extremities bilaterally) Peripheral Pulses: 2+: Radial (L), Radial (R), Posterior Tibial (L), Posterior Tibial (R) Extremities: Normal Inspection, Normal Range of Motion, Normal Capillary Refill, Pedal Edema Neurological: Alert, Oriented, Normal Cognition, Normal Gait, No Motor/Sensory Deficits Skin Exam: Warm, Dry, Intact, No Rash #1 Interpretation EKG Date: 01/23/21 Time: 12:40 Rhythm: NSR [place]: Normal P-Wave: Present QRS: Normal ST-T: Normal QT: Normal Comparison: NA - No Prior EKG EKG Interpretation Comments: Sinus rhythm rate of 78, no Q waves, hyperacute T waves, ST elevation or depression noted. Course - Vital Signs Last Recorded V/S: Last Vital Signs Temp 97.1 F 01/23/21 12:28 Pulse 88 01/23/21 12:28 Resp 18 01/23/21 12:28 BP 163/93 H 01/23/21 12:28 Pulse Ox 95 01/23/21 12:28 - Orders/Labs/Meds Orders: Active Orders 24 hr Category Date Time Status EKG Documentation Completion [RC] ASDIRECTED Care 01/23/21 12:40 Ordered CBC WITH AUTO DIFF [HEME] Stat Lab 01/23/21 12:39 Ordered COMPREHENSIVE METABOLIC PN,CMP [CHEM] Stat Lab 01/23/21 12:39 Ordered MAGNESIUM [CHEM] Stat Lab 01/23/21 12:39 Ordered EKG 12 Lead [EK] Routine Ther 01/23/21 12:40 Ordered Departure - Departure Time of Disposition: 14:01 Disposition: Home, Self-Care 01 Condition: Good Clinical Impression: Burnout of caregiver Fatigue Qualifiers: Fatigue type: due to excessive exertion Encounter type: initial encounter Qu alified Code(s): T73.3XXA - Exhaustion due to excessive exertion, initial encounter - Discharge Information *PRESCRIPTION DRUG MONITORING PROGRAM REVIEWED*: Not Applicable *COPY OF PRESCRIPTION DRUG MONITORING REPORT IN PATIENT SARAY: Not Applicable Referrals: PCP,None [Ordering Only Provider] - Additional Instructions: follow up in clinic in 2-3 weeks if no better. follow up in clinic sooner if worse at any time find time for "self care" do some things you find anali in do these things alone and with others. at times you can include you but do be sure to take breaks from being a caregiver 100% of the time. Sepsis Event Note (ED) - Evaluation Sepsis Screening Result: No Definite Risk - Focused Exam Vital Signs: Vital Signs Temp Pulse Resp BP Pulse Ox 01/23/21 12:28 97.1 F 88 18 163/93 H 95 - Problem List & Annotations (1) Burnout of caregiver SNOMED Code(s): 877124595, 967524978 Code(s): Z73.0 - BURN-OUT Status: Acute Current Visit: Yes (2) Fatigue SNOMED Code(s): 77714977 Code(s): R53.83 - OTHER FATIGUE Status: Acute Current Visit: Yes Qualifiers: Fatigue type: due to excessive exertion Encounter type: initial encounter Qualified Code(s): T73.3XXA - Exhaustion due to excessive exertion, initial encounter - Problem List Review Problem List Initiated/Reviewed/Updated: Yes - My Orders Last 24 Hours: My Active Orders 01/23/21 12:39 CBC WITH AUTO DIFF [HEME] Stat COMPREHENSIVE METABOLIC PN,CMP [CHEM] Stat MAGNESIUM [CHEM] Stat 01/23/21 12:40 EKG Documentation Completion [RC] ASDIRECTED EKG 12 Lead [EK] Routine - Assessment/Plan Last 24 Hours: My Active Orders 01/23/21 12:39 CBC WITH AUTO DIFF [HEME] Stat COMPREHENSIVE METABOLIC PN,CMP [CHEM] Stat MAGNESIUM [CHEM] Stat 01/23/21 12:40 EKG Documentation Completion [RC] ASDIRECTED EKG 12 Lead [EK] Routine Assessment:: assessment: burnout, caregiver fatigue plan: self care ramp up and continuation. follow up in clinic in 2-3 weeks if not better. sooner if worse.
[2021-01-23 13:28] VITALS: BP 178/83; PULSE 72
== END 2021-01-23 14:33 | disposition home or self-care (01) ==
LOC: LB.ED 12:18
DX: T73.3XXA Exhaustion due to excessive exertion, initial encounter (principal); I10 Essential (primary) hypertension; I25.2 Old myocardial infarction; E11.9 Type 2 diabetes mellitus without complications; Z73.0 Burn-out; Z88.8 Allergy status to other drugs, medicaments and biological substances; Z79.82 Long term (current) use of aspirin; Z79.01 Long term (current) use of anticoagulants; Z79.899 Other long term (current) drug therapy
CPT/HCPCS: 36415; 80053; 81001; 83735; 85025; 93005; 99285-25

== ENCOUNTER 2021-07-28 03:57 | Emergency (ER) | payer MEDICARE, BC ==
[2021-07-28] MEDS ORDERED: Ketorolac 30 MG/ML SDV IM ONE (05:24)
[2021-07-28] MEDS ORDERED: HYDROmorphone 2 MG/ML SDV IM ONE (07:09)
[2021-07-28] MEDS ORDERED: HYDROmorphone 2 MG/ML SDV ONE (07:21)
[2021-07-28] MEDS ORDERED: predniSONE 20 MG Tab PO ONE ×2 (08:34→16:45)
[2021-07-28] MEDS ORDERED: Acetaminophen/oxyCODONE 325-5 MG Tab PO PRN (08:35)
[2021-07-28] MEDS ORDERED: predniSONE 20 MG Tab ONE (09:21)
[2021-07-28] MEDS: predniSONE 20 MG Tab ONE ×2 (16:30→16:44)
[2021-07-28] MEDS ORDERED: Insulin Aspart 100 Units/ML 3 ML Pen SUBCUT ONE ×2 (17:27→20:46)
[2021-07-28] MEDS ORDERED: Glucagon,Human Recombinant 1 MG Vial IM PRN ×2 (17:27→20:46)
[2021-07-28] MEDS ORDERED: 50% Dextrose in Water 50 ML Syringe IVPUSH PRN ×2 (17:27→20:46)
[2021-07-28] MEDS: Allopurinol 100 MG Tab PO SCH (18:34)
[2021-07-28] MEDS ORDERED: Metoprolol Tartrate 25 MG Tab PO ONE (20:46)
[2021-07-28] MEDS ORDERED: Warfarin 5 MG Tab PO ONE (20:46)
[2021-07-29] MEDS ORDERED: Acetaminophen/oxyCODONE 325-5 MG Tab PO PRN (06:04)
[2021-07-29] MEDS ORDERED: Acetaminophen/oxyCODONE 325-5 MG Tab ONE (06:08)
[2021-07-29 08:21] VITALS: BP 189/93; PULSE 79
[2021-07-29] MEDS ORDERED: Glucagon,Human Recombinant 1 MG Vial IM PRN ×3 (08:26→13:45)
[2021-07-29] MEDS ORDERED: 50% Dextrose in Water 50 ML Syringe IVPUSH PRN ×3 (08:26→13:45)
[2021-07-29] MEDS: Allopurinol 100 MG Tab PO SCH ×2 (08:45→09:10)
[2021-07-29] MEDS ORDERED: Insulin Regular, Human 100 Units/ML 3 ML Vial SUBCUT ONE (10:00)
[2021-07-29] MEDS ORDERED: Insulin Aspart 100 Units/ML 3 ML Pen SUBCUT SCH ×2 (14:00→17:00)
== END 2021-07-29 14:30 | disposition home or self-care (01) ==
LOC: LB.ED 03:57
DX: M25.562 Pain in left knee (principal); E78.00 Pure hypercholesterolemia, unspecified; I10 Essential (primary) hypertension; I25.2 Old myocardial infarction; E11.9 Type 2 diabetes mellitus without complications; E66.9 Obesity, unspecified; Z68.32 Body mass index [BMI] 32.0-32.9, adult; Z88.5 Allergy status to narcotic agent; Z79.01 Long term (current) use of anticoagulants; Z79.4 Long term (current) use of insulin; Z79.82 Long term (current) use of aspirin; Z20.822 Contact with and (suspected) exposure to COVID-19
CPT/HCPCS: 36415; 73560-LT; 80048; 82947; 84550; 85025; 85651; 86140; 96372; 99283; 99284-25; A9270-GY; J1170; J1885; J7512; U0002

== ENCOUNTER 2024-06-12 10:57 | Emergency (ER) | payer MEDICARE, BC ==
[2024-06-12 17:05] VITALS: PULSE 76
[2024-06-12 17:06] VITALS: BP 206/103
== END 2024-06-12 16:00 | disposition home or self-care (01) ==
LOC: LB.ED 10:57
DX: S32.592A Other specified fracture of left pubis, initial encounter for closed fracture (principal); I12.9 Hypertensive chronic kidney disease with stage 1 through stage 4 chronic kidney disease, or unspecified chronic kidney disease; I25.2 Old myocardial infarction; N18.9 Chronic kidney disease, unspecified; E11.22 Type 2 diabetes mellitus with diabetic chronic kidney disease; E78.00 Pure hypercholesterolemia, unspecified; Z88.8 Allergy status to other drugs, medicaments and biological substances; Z79.82 Long term (current) use of aspirin; Z79.4 Long term (current) use of insulin; Z79.899 Other long term (current) drug therapy; Z90.49 Acquired absence of other specified parts of digestive tract; W19.XXXA Unspecified fall, initial encounter
CPT/HCPCS: 73552-LT; 74176; 99284